=== PATIENT | male | born 1960 | race Caucasian/White ===

== ENCOUNTER 2023-01-29 22:12 | Emergency (ER) | payer OTHER ==
[~2023-01-29] VITALS: Ht 172.7 cm; Wt 108.9 kg
--- NOTE | 2023-01-29 22:51 | NUR ---
PATIENT SITTINNG IN BED AWAITING MD EXAM, INFORMED OF PLAN OF CARE, NO S/S OF ANY DISTRESS NOTED.
--- NOTE | 2023-01-29 22:59 | NUR ---
AT BEDSIDE FOR EXAM.
[2023-01-29] MEDS ORDERED: OXYC-128 PO (23:02)
[2023-01-29] MEDS ORDERED: IBUPROFEN 600 MG TABLET ONE (23:08)
--- NOTE | 2023-01-29 23:09 | NUR ---
MEDICATED PER ORDER FOR C/O PAIN.
[2023-01-29 23:11] VITALS: BP 135/94
[2023-01-29] MEDS ORDERED: IBUPROFEN 600 MG TABLET PO ONE (23:15)
== END 2023-01-29 23:12 | disposition home or self-care (01) ==
LOC: ER 22:12
DX: T23.202A Burn of second degree of left hand, unspecified site, initial encounter (principal); Z79.899 Other long term (current) drug therapy; X10.0XXA Contact with hot drinks, initial encounter; Y93.89 Activity, other specified; Y92.89 Other specified places as the place of occurrence of the external cause; Y99.8 Other external cause status
CPT/HCPCS: A4663